=== PATIENT | female | born 1970 | race Caucasian/White ===

== ENCOUNTER 2016-11-07 15:33 | Emergency (ER) | payer MEDICARE, OTHER ==
[2016-11-07] MEDS ORDERED: NACL 0.9% 1000 ML 1,000 ML IV ONE (16:33)
[2016-11-07 16:37] LABS: Basophils % (Auto) 0.8 % (0.0-1.8); Eosinophils % (Auto) 1.2 % (0.0-4.3); Hematocrit 35.7 % (30.3-42.9); Mean Corpuscular HGB Conc 31 % (30-34); Mean Corpuscular Volume 72 fl (79-97); Platelet Count 428 K/mm3 (140-440); Red Blood Count 4.98 M/mm3 (3.65-5.03)
[2016-11-07 16:38] LABS: Mean Corpuscular Hemoglobin 22 pg (28-32); Red Cell Distribution Width 20.3 % (13.2-15.2)
--- NOTE | 2016-11-07 16:38 | Emergency Department Report ---
ED Female HPI - General Chief complaint: Vaginal Bleeding Stated complaint: VAGINAL BLEEDING Time Seen by Provider: 11/07/16 16:27 Source: patient Mode of arrival: Ambulatory Limitations: No Limitations - History of Present Illness Initial comments: Patient is 46 years old female with no significant past medical history except for fibroid status post myomectomy 3 months ago presented today with heavy vaginal bleeding started last night she stated that she is changing her pads almost every hours with clot. Patient denied any chest pain shortness of breath denied any fever. MD Complaint: vaginal bleeding -: Last night Quality: cramping Consistency: intermittent - Related Data Previous Rx's Medication Instructions Recorded Last Taken Type HYDROcodone/APAP 5-325 [[place] 1 each PO Q6HR PRN #14 tablet 11/07/16 Unknown Rx 5/325] Ondansetron [Zofran Odt] 4 mg PO Q8HR PRN #14 tab.rapdis 11/07/16 Unknown Rx medroxyPROGESTERone ACETATE 10 mg PO QDAY #10 tablet 11/07/16 Unknown Rx [Provera] Allergies Allergy/AdvReac Type Severity Reaction Status Date / Time clotrimazole [From Mycelex] Allergy Swelling Verified 11/07/16 16:11 codeine Allergy Swelling Verified 11/07/16 16:11 prochlorperazine Allergy Unknown Verified 11/07/16 16:11 [From Compazine] prochlorperazine edisylate Allergy Unknown Verified 11/07/16 16:11 [From Compazine] prochlorperazine maleate Allergy Unknown Verified 11/07/16 16:11 [From Compazine] ED Review of Systems ROS: Stated complaint: VAGINAL BLEEDING Other details as noted in HPI Comment: All other systems reviewed and negative Constitutional: denies: chills, fever Respiratory: denies: cough, orthopnea, shortness of breath, SOB with exertion Cardiovascular: palpitations. denies: chest pain Gastrointestinal: abdominal pain. denies: nausea, vomiting Genitourinary: abnormal menses Musculoskeletal: denies: back pain Neurological: denies: headache ED Past Medical Hx - Past Medical History Hx Headaches / Migraines: Yes Additional medical history: anemia - Surgical History Additional Surgical History: myomectomy, breast reduction, gastric sleeve - Social History Smoking Status: Never Smoker Substance Use Type: None - Medications Home Medications: Home Medications Medication Instructions Recorded Confirmed Last Taken Type HYDROcodone/APAP 5-325 [[place] 1 each PO Q6HR PRN #14 tablet 11/07/16 Unknown Rx 5/325] Ondansetron [Zofran Odt] 4 mg PO Q8HR PRN #14 tab.rapdis 11/07/16 Unknown Rx medroxyPROGESTERone ACETATE 10 mg PO QDAY #10 tablet 11/07/16 Unknown Rx [Provera] ED Physical Exam - General Limitations: No Limitations General appearance: alert - Head Head exam: Present: atraumatic, normocephalic - Eye Eye exam: Present: normal appearance - ENT ENT exam: Present: normal exam, normal orophraynx, mucous membranes moist - Neck Neck exam: Present: normal inspection - Cardiovascular Cardiovascular Exam: Present: tachycardia. Absent: systolic murmur, diastolic murmur - GI/Abdominal GI/Abdominal exam: Present: soft, normal bowel sounds. Absent: distended, tenderness, guarding, rebound, rigid, mass, bruit, pulsatile mass - Extremities Exam Extremities exam: Present: normal inspection - Back Exam Back exam: Present: normal inspection. Absent: CVA tenderness (R), CVA tenderness (L) - Neurological Exam Neurological exam: Present: alert, oriented X3, CN II-XII intact, normal gait - Skin Skin exam: Present: warm, intact, normal color ED Course Vital Signs 11/07/16 11/07/16 11/07/16 16:11 16:40 16:48 Temperature 98.7 F 98.7 F Pulse Rate 133 H 107 H 106 H Respiratory 18 22 15 Rate Blood Pressure 159/98 Blood Pressure 156/92 [Right] O2 Sat by Pulse 100 100 Oximetry 11/07/16 11/07/16 11/07/16 17:00 17:30 18:56 Temperature Pulse Rate 103 H 109 H Respiratory 14 8 L 16 Rate Blood Pressure 110/86 122/87 Blood Pressure [Right] O2 Sat by Pulse 100 Oximetry - Reevaluation(s) Reevaluation #1: 11/07/16 19:02 Patient stated that she is feeling better. ED Medical Decision Making - Lab Data Result diagrams: 11/07/16 16:23 11/07/16 16:23 - Radiology Data Radiology results: report reviewed Pelvic ultrasound show 1.7 time 1 cm submucosal echogenicity most likely a small fibroid. Labs came back slightly anemic. Patient will receive Methergine 0.2 mg IM and Provera prescription and follow-up is Dr. Griffin gynecology. Critical care attestation.: If time is entered above; I have spent that time in minutes in the direct care of this critically ill patient, excluding procedure time. ED Disposition Clinical Impression: Vaginal bleeding, Abdominal pain Disposition: TO HOME OR SELFCARE Is pt being admited?: No Condition: Stable Instructions: Uterine Fibroids (ED) Prescriptions: HYDROcodone/APAP 5-325 [[place] 5/325] 1 each PO Q6HR PRN #14 tablet PRN Reason: Pain medroxyPROGESTERone ACETATE [Provera] 10 mg PO QDAY #10 tablet Ondansetron [Zofran Odt] 4 mg PO Q8HR PRN #14 tab.rapdis PRN Reason: Nausea And Vomiting Referrals: GEMA GRIFFIN MD [Staff Physician] - 3-5 Days
[2016-11-07 16:58] LABS: Alanine Aminotransferase 10 units/L (7-56); Albumin 4.7 g/dL (3.9-5); Albumin/Globulin Ratio 1.2 %; Alkaline Phosphatase 45 units/L (35-129); Anion Gap 20 mmol/L; Blood Urea Nitrogen 8 mg/dL (7-17); Calcium 9.6 mg/dL (8.4-10.2); Carbon Dioxide 22 mmol/L (22-30); Chloride 99.8 mmol/L (98-107); Glucose 112 mg/dL (65-100); Potassium 3.7 mmol/L (3.6-5.0); Sodium 138 mmol/L (137-145); Total Protein 8.6 g/dL (6.3-8.2)
[2016-11-07] MEDS ORDERED: TORADOL ONE (17:55)
[2016-11-07] MEDS ORDERED: TORADOL IV ONE (18:00)
[2016-11-07 18:03] VITALS: BP 122/87
--- NOTE | 2016-11-07 18:48 | Ultrasound Report ---
FINAL REPORT PROCEDURE: US PELVIC COMPLETE TECHNIQUE: Real-time transabdominal sonography in multiple planes of the pelvis was performed. The pelvic structures, especially the ovaries were not optimally visualized. Transvaginal sonography was then performed to better evaluate the structures and/or abnormalities described below with image documentation. CPT 73565 and 13939 HISTORY: abdominal pain, vag bleed, tachycardia COMPARISON: No prior studies are available for comparison. FINDINGS: Uterus measures 11.8 cm in length. There is either an endometrial mucosal or submucosal lesion in the posterior body of the uterus that measures 1.7 x 1.0 cm. This could possibly be a submucosal fibroid but an endometrial mass is not excluded. Correlation with contrast-enhanced MRI may be useful. Endometrium appears more normal in the fundus. Right ovary measures 3.3 x 2.9 x 2.3 cm. Left ovary measures 2.0 x 1.4 x 1.7 cm. 1.6 cm complex cyst is seen in the right ovary. Color Doppler flow seen in the ovaries. Trace free pelvic fluid is likely physiologic. IMPRESSION: 1.7 x 1.0 cm heterogeneously hypoechoic area is seen associated with mucosa or submucosa of the endometrium, in the body of the uterus posteriorly. Endometrial mass or submucosal fibroid are possible etiologies. Correlation with contrast-enhanced MRI may be useful.
--- NOTE | 2016-11-07 18:50 | Ultrasound Report ---
FINAL REPORT PROCEDURE: US TRANSVAGINAL TECHNIQUE: Real-time transabdominal sonography in multiple planes of the pelvis was performed. The pelvic structures, especially the ovaries were not optimally visualized. Transvaginal sonography was then performed to better evaluate the structures and/or abnormalities described below with image documentation. CPT 56371 and 04550 HISTORY: ABDOMINAL PAIN ,heavy bleeding, recent myomectomy COMPARISON: No prior studies are available for comparison. FINDINGS: Uterus measures 11.8 cm in length. There is either an endometrial mucosal or submucosal lesion in the posterior body of the uterus that measures 1.7 x 1.0 cm. This could possibly be a submucosal fibroid but an endometrial mass is not excluded. Correlation with contrast-enhanced MRI may be useful. Endometrium appears more normal in the fundus. Right ovary measures 3.3 x 2.9 x 2.3 cm. Left ovary measures 2.0 x 1.4 x 1.7 cm. 1.6 cm complex cyst is seen in the right ovary. Color Doppler flow seen in the ovaries. Trace free pelvic fluid is likely physiologic. IMPRESSION: 1.7 x 1.0 cm heterogeneously hypoechoic area is seen associated with mucosa or submucosa of the endometrium, in the body of the uterus posteriorly. Endometrial mass or submucosal fibroid are possible etiologies. Correlation with contrast-enhanced MRI may be useful.
[2016-11-07 18:59] LABS: Bilirubin,Urine NEG (Negative); Blood,Urine MOD (Negative); Ketones,Urine TR mg/dL (Negative); Leukocyte Esterase,Urine TR (Negative); Mucus,Urine FEW /HPF; Nitrite,Urine NEG (Negative); Protein,Urine <15 mg/dL mg/dL (Negative); Urobilinogen,Urine < 2.0 mg/dL (<2.0)
== END 2016-11-07 19:22 | disposition home or self-care (01) ==
LOC: ED 15:33
DX: N93.9 Abnormal uterine and vaginal bleeding, unspecified (principal); R10.9 Unspecified abdominal pain; D64.9 Anemia, unspecified; Z88.5 Allergy status to narcotic agent; G43.909 Migraine, unspecified, not intractable, without status migrainosus
CPT/HCPCS: 36415; 76830; 76856; 80053; 81001; 84702; 85025; 86850; 86900; 86901; 96361; 96374; 99284; J1885; J7030

== ENCOUNTER 2017-01-01 18:05 | Emergency (ER) | payer MEDICARE, OTHER ==
[2017-01-01 19:40] LABS: Anion Gap 15 mmol/L; BUN/Creatinine Ratio 23; Blood Urea Nitrogen 14 mg/dL (7-17); Calcium 9.1 mg/dL (8.4-10.2); Carbon Dioxide 27 mmol/L (22-30); Chloride 100.7 mmol/L (98-107); Glucose 101 mg/dL (65-100); Potassium 4.3 mmol/L (3.6-5.0); Sodium 138 mmol/L (137-145)
[2017-01-01 19:46] LABS: Hematocrit 26.6 % (30.3-42.9); Hemoglobin 8.4 gm/dl (10.1-14.3); Mean Corpuscular HGB Conc 32 % (30-34); Platelet Count 361 K/mm3 (140-440); Red Blood Count 3.82 M/mm3 (3.65-5.03); Red Cell Distribution Width 18.5 % (13.2-15.2); White Blood Count 13.5 K/mm3 (4.5-11.0)
[2017-01-01 20:14] LABS: Mean Corpuscular Hemoglobin 22 pg (28-32); Mean Corpuscular Volume 70 fl (79-97)
[2017-01-01 21:09] LABS: Bilirubin,Urine NEG (Negative); Blood,Urine LG (Negative); Ketones,Urine NEG (Negative); Leukocyte Esterase,Urine TR (Negative); Mucus,Urine FEW /HPF; Nitrite,Urine NEG (Negative); Protein,Urine <15 mg/dL mg/dL (Negative); Urobilinogen,Urine < 2.0 mg/dL (<2.0)
[2017-01-01 21:11] LABS: RBC,Urine > 182.0 /HPF (0.0-6.0)
[2017-01-02 07:40] LABS: Hematocrit 26.1 % (30.3-42.9); Hemoglobin 8.2 gm/dl (10.1-14.3)
[2017-01-02] MEDS ORDERED: NORCO 5/325 PO ONE (08:01)
[2017-01-02] MEDS ORDERED: ZOFRAN ODT PO ONE (08:02)
--- NOTE | 2017-01-02 10:06 | Emergency Department Report ---
HPI - General Chief Complaint: Vaginal Bleeding Time Seen by Provider: 01/02/17 09:34 - HPI HPI: Room 9 The patient is a 46-year-old female presenting with a chief complaint of vaginal bleeding. Patient says she has a history of abnormal vaginal bleeding and is scheduled to see a specialist. Patient states her vaginal bleeding again started yesterday and she gone through approximately 16 pads. Patient states she has pelvic pain. The patient came to the ED in November for the same. The patient is pressing pain medication and medication to help slow her vaginal bleeding. Patient gives her pain score of 9/10 Location: Pelvis Duration: Since yesterday Quality: Pain Severity: 9/10 Modifying factors: [see above] Context: [see above] Mode of transportation: [not driving] ED Past Medical Hx - Past Medical History Hx Headaches / Migraines: Yes Additional medical history: anemia,PCO,fibroids - Surgical History Additional Surgical History: myomectomy, breast reduction, gastric sleeve - Social History Smoking Status: Never Smoker Substance Use Type: None - Medications Home Medications: Home Medications Medication Instructions Recorded Confirmed Last Taken Type HYDROcodone/APAP 5-325 [[place] 1 each PO Q6HR PRN #14 tablet 11/07/16 Unknown Rx 5/325] Ondansetron [Zofran Odt] 4 mg PO Q8HR PRN #14 tab.rapdis 11/07/16 Unknown Rx medroxyPROGESTERone ACETATE 10 mg PO QDAY #10 tablet 11/07/16 Unknown Rx [Provera] Docusate Sodium [Colace] 100 mg PO BID PRN #60 capsule 01/02/17 Unknown Rx Ferrous Sulfate 325 mg PO BID #60 tablet. 01/02/17 Unknown Rx HYDROcodone/ACETAMINOPHEN [[place] 1 - 2 each PO Q4-6H PRN #14 tablet 01/02/17 Unknown Rx 5-325 Tablet] medroxyPROGESTERone ACETATE 10 mg PO QDAY #10 tablet 01/02/17 Unknown Rx [Provera] ED Review of Systems ROS: Stated complaint: HEAVY BLEEDING Other details as noted in HPI Gastrointestinal: abdominal pain (pelvic pain) Genitourinary: abnormal menses Musculoskeletal: back pain Physical Exam - Physical Exam Vital Signs: Vital Signs 01/01/17 01/01/17 01/02/17 19:12 22:37 05:33 Temperature 98.6 F 97.8 F 98.0 F Pulse Rate 109 H 101 H 82 Respiratory 20 12 14 Rate Blood Pressure 187/105 153/88 134/88 O2 Sat by Pulse 100 101 H 100 Oximetry Physical Exam: GENERAL: The patient is well-developed well-nourished female lying on stretcher not appearing to be in acute distress. [] HEENT: Normocephalic. Atraumatic. Extraocular motions are intact. Patient has moist mucous membranes. NECK: Supple. Trachea midline CHEST/LUNGS: Clear to auscultation. There is no respiratory distress noted. HEART/CARDIOVASCULAR: Regular. There is no tachycardia. There is no gallop rub or murmur. ABDOMEN: Abdomen is soft, nontender. Patient has normal bowel sounds. There is no abdominal distention. SKIN: There is no rash. There is no edema. There is no diaphoresis. NEURO: The patient is awake, alert, and oriented. The patient is cooperative. The patient has normal speech MUSCULOSKELETAL: There is no evidence of acute injury. PELVIC: No blood seen in the vaginal vault ED Course Vital Signs 01/01/17 01/01/17 01/02/17 19:12 22:37 05:33 Temperature 98.6 F 97.8 F 98.0 F Pulse Rate 109 H 101 H 82 Respiratory 20 12 14 Rate Blood Pressure 187/105 153/88 134/88 O2 Sat by Pulse 100 101 H 100 Oximetry ED Medical Decision Making - Lab Data Result diagrams: 01/02/17 07:31 01/01/17 19:19 Laboratory Tests 01/01/17 01/01/17 01/01/17 19:19 19:19 Unknown WBC 13.5 H RBC 3.82 Hgb 8.4 L Hct 26.6 L MCV 70 L MCH 22 L MCHC 32 RDW 18.5 H Plt Count 361 Sodium 138 Potassium 4.3 Chloride 100.7 Carbon Dioxide 27 Anion Gap 15 BUN 14 Creatinine 0.6 L Estimated GFR > 60 BUN/Creatinine Ratio 23 Glucose 101 H Calcium 9.1 Urine Color Yellow Urine Turbidity Clear Urine pH 6.0 Ur Specific [place] 1.023 Urine Protein <15 mg/dl Urine Glucose (UA) Neg Urine Ketones Neg Urine Blood Lg Urine Nitrite Neg Urine Bilirubin Neg Urine Urobilinogen < 2.0 Ur Leukocyte Esterase Tr Urine WBC (Auto) 2.0 Urine RBC (Auto) > 182.0 U Epithel Cells (Auto) 2.0 Urine Mucus Few Urine HCG, Qual 01/02/17 01/02/17 07:31 Unknown WBC RBC Hgb 8.2 L Hct 26.1 L MCV MCH MCHC RDW Plt Count Sodium Potassium Chloride Carbon Dioxide Anion Gap BUN Creatinine Estimated GFR BUN/Creatinine Ratio Glucose Calcium Urine Color Urine Turbidity Urine pH Ur Specific [place] Urine Protein Urine Glucose (UA) Urine Ketones Urine Blood Urine Nitrite Urine Bilirubin Urine Urobilinogen Ur Leukocyte Esterase Urine WBC (Auto) Urine RBC (Auto) U Epithel Cells (Auto) Urine Mucus Urine HCG, Qual Negative - Differential Diagnosis menorrhagia, uterine cancer, fibroids Critical care attestation.: If time is entered above; I have spent that time in minutes in the direct care of this critically ill patient, excluding procedure time. ED Disposition Clinical Impression: Menorrhagia Disposition: DC- TO HOME OR SELFCARE Is pt being admited?: No Does the pt Need Aspirin: No Condition: Stable Instructions: Menorrhagia (ED) Additional Instructions: Return to the emergency department immediately should you develop worsening symptoms, fever, inability to tolerate food or liquid or any other concerns. Prescriptions: Docusate Sodium [Colace] 100 mg PO BID PRN #60 capsule PRN Reason: Constipation Ferrous Sulfate 325 mg PO BID #60 tablet. HYDROcodone/ACETAMINOPHEN [[place] 5-325 Tablet] 1 - 2 each PO Q4-6H PRN #14 tablet PRN Reason: Pain medroxyPROGESTERone ACETATE [Provera] 10 mg PO QDAY #10 tablet Referrals: PRIMARY CARE, [Primary Care Provider] - 3-5 Days your, SURGERY ATTENDANT [Other] - 3-5 Days Time of Disposition: 10:16
[2017-01-02 11:32] VITALS: BP 122/81
== END 2017-01-02 11:31 | disposition home or self-care (01) ==
LOC: ED 18:05
DX: N92.0 Excessive and frequent menstruation with regular cycle (principal)
CPT/HCPCS: 36415; 80048; 81001; 81025; 85014; 85018; 85027; 99284; Q0162

== ENCOUNTER 2017-03-26 03:14 | Emergency (ER) | payer MEDICARE, OTHER ==
[2017-03-26 05:07] VITALS: BP 138/74
--- NOTE | 2017-03-26 05:30 | XRay Report ---
FINAL REPORT EXAM: XR CHEST ROUTINE 2V HISTORY: cough TECHNIQUE: PA and lateral views of the chest were submitted. FINDINGS: Heart size and mediastinum appear normal. The lungs are clear. Pleural fluid is not seen. The bones and soft tissues appear normal. IMPRESSION: Normal chest.
--- NOTE | 2017-03-26 05:39 | Emergency Department Report ---
HPI - General Chief Complaint: Upper Respiratory Infection Time Seen by Provider: 03/26/17 05:34 - HPI HPI: 46-year-old -[place] female comes in stating she's been having flulike symptoms for the last 3 weeks. He reports that the last 2 days she developed an earache sore throat difficulty breathing and more mucous drainage. Patient reports that her ears or popping and she's had been made back pain. She complains of intermittent cough and sneezing bodyaches and sore throat. Reports her temperature max is 102. She's been taken TheraFlu and NyQuil and Tylenol as well as ibuprofen for pain and control as well as fever control. Patient has a past medical history of fibroids migraine. She does do Botox for her migraines. Has allergies against codeine and Compazine as well as clotrimazole. He since last menstrual period was 02/26/2017. ED Past Medical Hx - Past Medical History Previous Medical History?: Yes Hx Headaches / Migraines: Yes Additional medical history: anemia,PCO,fibroids - Surgical History Past Surgical History?: Yes Additional Surgical History: myomectomy, breast reduction, gastric sleeve - Social History Smoking Status: Never Smoker Substance Use Type: None - Medications Home Medications: Home Medications Medication Instructions Recorded Confirmed Last Taken Type HYDROcodone/APAP 5-325 [[place] 1 each PO Q6HR PRN #14 tablet 11/07/16 Unknown Rx 5/325] Ondansetron [Zofran Odt] 4 mg PO Q8HR PRN #14 tab.rapdis 11/07/16 Unknown Rx medroxyPROGESTERone ACETATE 10 mg PO QDAY #10 tablet 11/07/16 Unknown Rx [Provera] Docusate Sodium [Colace] 100 mg PO BID PRN #60 capsule 01/02/17 Unknown Rx Ferrous Sulfate 325 mg PO BID #60 tablet. 01/02/17 Unknown Rx HYDROcodone/ACETAMINOPHEN [[place] 1 - 2 each PO Q4-6H PRN #14 tablet 01/02/17 Unknown Rx 5-325 Tablet] medroxyPROGESTERone ACETATE 10 mg PO QDAY #10 tablet 01/02/17 Unknown Rx [Provera] Dexchlorpheniram/Phenylephrine 1 each PO Q6H #20 tab 03/26/17 Unknown Rx [[place]ed Tablet] Ibuprofen 600 mg PO Q8H PRN #30 tablet 03/26/17 Unknown Rx ED Review of Systems ROS: Stated complaint: URI SX Other details as noted in HPI Constitutional: fever ENT: ear pain, throat pain Respiratory: cough Cardiovascular: denies: chest pain, palpitations Endocrine: no symptoms reported Gastrointestinal: denies: abdominal pain, nausea, diarrhea Genitourinary: denies: urgency, dysuria, discharge Musculoskeletal: as per HPI Skin: denies: rash, lesions Neurological: denies: headache, weakness, paresthesias Psychiatric: denies: anxiety, depression Hematological/Lymphatic: denies: easy bleeding, easy bruising Physical Exam - Physical Exam Vital Signs: Vital Signs 03/26/17 04:50 Temperature 98.3 F Pulse Rate 100 H Blood Pressure 138/74 O2 Sat by Pulse 100 Oximetry Physical Exam: GENERAL: Alert and oriented x3, no apparent distress, Normal Gait, atraumatic. HEAD: Head is normocephalic and a-traumatic. EYES: Extra ocular muscles are intact. Pupils are equal, round, and reactive to light and accommodation. EARS: symetrical, atraumatic, non tender, ear canal clear and moderate cerumen, tympanic membrance non inflamed. gross auditory nml bilaterally. NOSE: Nose symetrical, Nontender,Nares appeared normal. MOUTH:Mouth is well hydrated and without lesions. Tonsils nonerythematous or swollen, Uvula midline, Tongue not elevated. Mucous membranes are moist. Posterior pharynx clear, no exudate or lesions. Patent airways. NECK: Supple. Non edematous, No carotid bruits. No lymphadenopathy or thyromegaly. LUNGS: Symetrical with respiration, No wheezing, no rales or crackles, CTAB. HEART: S1, S2 present, regular rate and rhythm without murmur, no rubs, no gallops. ABDOMEN: No organomegaly was noted,Positive bowel sounds, soft, and non- distended. . Nontender to palpation on all Quadrants, NO CVA tenderness. EXTREMITIES/MUSCULOSKELETAL: No cyanosis, clubbing, rash, lesions or edema. Full ROM bilaterally. UE/LE Pulses 2+ bilaterally. LE and UE 5+ strength bilaterally NEUROLOGIC: No focal Deficit, Cranial nerves II through XII are grossly intact. No loss of sensation, No facial droop, PSYCHIATRIC: Mood is congruent with affect, denies suicidal or homicidal ideations. SKIN: Warm and dry, No lesions, No ulceration or induration present ED Course Vital Signs 03/26/17 04:50 Temperature 98.3 F Pulse Rate 100 H Blood Pressure 138/74 O2 Sat by Pulse 100 Oximetry ED Medical Decision Making - Radiology Data Radiology results: report reviewed, image reviewed Normal exam - Medical Decision Making Patient has been evaluated by this provider fast track. Chest x-ray was ordered which was normal exam. We'll discharge patient on Raymed which is a combination of Sudafed and antihistamine. Have patient follow up with the primary care provider. Critical care attestation.: If time is entered above; I have spent that time in minutes in the direct care of this critically ill patient, excluding procedure time. ED Disposition Clinical Impression: Upper respiratory infection, viral Disposition: DC-01 TO HOME OR SELFCARE Is pt being admited?: No Does the pt Need Aspirin: No Condition: Stable Instructions: Viral Syndrome (ED) Additional Instructions: Please take medication as prescribed. Please increase her fluid intake. Follow up with her provider within 3-5 days for follow-up. Prescriptions: Dexchlorpheniram/Phenylephrine [[place] Tablet] 1 each PO Q6H #20 tab Ibuprofen 600 mg PO Q8H PRN #30 tablet PRN Reason: Pain Referrals: WILBERT MENDEZ MD [Primary Care Provider] - 3-5 Days [facility] [Provider Group] - 3-5 Days [facility] [Provider Group] - 3-5 Days Forms: Work/School Release Form(ED)
== END 2017-03-26 05:57 | disposition home or self-care (01) ==
LOC: ED 03:14
DX: J06.9 Acute upper respiratory infection, unspecified (principal); G43.909 Migraine, unspecified, not intractable, without status migrainosus; D64.9 Anemia, unspecified; Z88.8 Allergy status to other drugs, medicaments and biological substances
CPT/HCPCS: 71046; 87116; 87400; 87430